=== PATIENT | female | born 1990 | race American Indian/Alaskan Native ===

== ENCOUNTER 2019-10-30 13:37 | Emergency (ER) | payer SELFPAY ==
[2019-10-30 14:34] VITALS: BP 131/81
--- NOTE | 2019-10-30 14:39 | Emergency Department Report ---
Chief Complaint: Dental/Oral Stated Complaint: TOOTHACHE Time Seen by Provider: 10/30/19 14:33 - HPI History of Present Illness: 29 y o female presents with left dental pain, she denies gingival bleeding, denies dental injury or trauma denies f/c/n/v/trouble swallowing - ROS Review of Systems: as noted in HPI - Exam Vital Signs: Temp Pulse Resp BP Pulse Ox 99.1 F 80 18 131/81 98 10/30/19 14:31 10/30/19 14:31 10/30/19 14:31 10/30/19 14:31 10/30/19 14:31 Physical Exam: GEN: AAO x 3, no acute distress no evidence of dental trauma or swelling MSE screening note: Focused history and physical exam performed. Due to findings the following was ordered: ED Disposition for MSE Clinical Impression: Toothache Disposition: Z MED SCREENING EXAM-LEFT Is pt being admited?: No Does the pt Need Aspirin: No Condition: Stable Instructions: Toothache (ED) Referrals: [facility] [Outside] - 3-5 Days [facility] [Outside] - 3-5 Days [facility] [Outside] - 3-5 Days Forms: Work/School Release Form(ED) Time of Disposition: 14:35
== END 2019-10-30 15:19 | disposition left against medical advice (07) ==
LOC: ED 13:37
DX: K08.89 Other specified disorders of teeth and supporting structures (principal); Z53.21 Procedure and treatment not carried out due to patient leaving prior to being seen by health care provider